=== PATIENT | female | born 1965 | race Caucasian/White ===

== ENCOUNTER 2023-07-21 15:28 | Outpatient (CLI) | payer OTHER, SELFPAY ==
--- NOTE | 2023-07-21 15:30 | CRLHL7_ITS ---
For Patients: As a result of the Century Cures Act, medical imaging exams and procedure reports are released immediately into your electronic medical record. You may view this report before your referring provider. If you have questions, please contact your health care provider. HISTORY: Right knee pain. TECHNIQUE: Noncontrast MRI of the right knee. COMPARISON: Radiographs 06/22/2023. FINDINGS: Medial compartment: Medial meniscus: Complex tearing of the posterior horn medial meniscus. There is a approximately 11 x 9 mm meniscal flap extending anteriorly from the posterior horn of the meniscus closer to the root. The flap is noted on coronal STIR image #20 of series 5 for example. The more anterior aspect of the medial meniscus is intact. Articular cartilage: Mild thinning of the articular cartilage of the medial joint space compartment (grade 1/2). - Lateral compartment: Lateral meniscus: Slightly frayed free edge of the lateral meniscal body. Articular cartilage: Maintained. - Patellofemoral compartment: There is subchondral bone marrow edema involving the lateral patellar facet more inferiorly which relates to overlying limited grade 4 chondromalacia. There is high-grade chondromalacia within the central medial trochlea, also likely up to grade 4 given the presence of subchondral bone marrow edema. - Ligaments: The anterior and posterior cruciate ligaments are intact. Medial collateral ligament is intact. The lateral collateral complex intact. - Extensor mechanism: The distal quadriceps tendon and patellar tendon are intact. Medial and lateral patellar restraints are intact. No patellar subluxation or denice. - Joint space: Small amount of joint fluid. No intra-articular joint body. Medial patellar plica. - Bones and soft tissues: Bone marrow edema involving the medial tibial plateau likely relates to mild stress change. There is no fracture. A popliteal cyst is present measuring approximately 3 x 2 x 5.3 cm in size with findings of leakage inferiorly. IMPRESSION: 1. Complex medial meniscal tear with a displaced meniscal flap. 2. Mild bone marrow edema involving the medial tibial plateau likely reflecting mild stress change. No fracture. 3. Patellofemoral greater than medial compartment articular cartilage wear. 4. Small knee joint effusion. 5. Popliteal cyst with findings of leakage. Dictated by Aleksandar Contreras MD @ 07/24/2023 11:56:30 AM (Electronically Signed)
== END 2023-07-21 15:29 | disposition home or self-care (01) ==
LOC: MRI 15:33
PROVIDERS: PCP Orthopaedic Surgery; Visit Provider Orthopaedic Surgery
DX: M25.561 Pain in right knee (principal); S83.231A Complex tear of medial meniscus, current injury, right knee, initial encounter; M25.461 Effusion, right knee; M71.21 Synovial cyst of popliteal space [Baker], right knee
CPT/HCPCS: 73721

== ENCOUNTER 2023-08-11 08:54 | Day surgery (SDC) | payer OTHER, SELFPAY ==
[2023-08-11] VITALS (12 sets, daily range): BP systolic 97–120; BP diastolic 64–80; PULSE 58–79; RESP 14–18; TEMP 35.9–36.6; O2SAT 95–100; BMI 25.0
--- NOTE | 2023-08-11 09:27 | W.PM.H&PU ---
History & Physical Update History & Physical Update H&P Reviewed and patient assessed: No changes noted
--- NOTE | 2023-08-11 09:28 | P.ORPRC_ITS ---
Procedure Note Date of procedure: 08/11/23 Procedure: PREOPERATIVE DIAGNOSIS: 1. Right knee medial meniscus tear and chondromalacia POSTOPERATIVE DIAGNOSIS: 1. 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 Right knee arthroscopic partial medial and lateral meniscectomies. 2. Right knee arthroscopic chondroplasty medial femoral condyle and trochlea. SURGEON: Gilmer Pitt M.D. SIGN HANGER: Carlos Manuel [employer] - An kindergarten instructional assistant was critical for this case to aid in patient positioning, knee manipulation, instrument exchange, and closure. ANESTHESIA: Spinal EBL: 5 mL TOURNIQUET: Not applicable COMPLICATIONS: None evident INDICATIONS: Eufemia is a pleasant 57-year-old female with several month history of medial-sided right knee pain that did not improve with conservative management. MRI was significant for complex tear of the posterior horn of the medial meniscus. Due to persistent symptoms. Patient was offered arthroscopic partial medial meniscectomy to help improve symptoms. Prior to surgery risks and benefits were discussed with patient all questions were answered and informed consent was obtained. FINDINGS: Examination received a full range of motion. Knee was stable to varus valgus stress. Bob's and posterior drawer tests were negative. Arthroscopic examination revealed complex degenerative tear involving the posterior horn of the medial meniscus. There was some fraying of the posterior horn and body of the lateral meniscus. Meniscal root attachments were intact. ACL PCL were intact. Diffuse grade 3 chondromalacia of the medial femoral condyle with grade 1 chondromalacia of the medial tibial plateau. Grade 2 and grade 3 chondral changes of the lateral tibial plateau. Diffuse grade 3 chondral changes of the patella. Small grade 4 chondral malacia of the trochlea which measured 3 mm x 5 mm. DESCRIPTION OF PROCEDURE: Patient seen preoperatively and operative site was marked. She was then brought to the operating room where spinal anesthesia was administered. She was then rotated into the supine position on the OR table and the operative leg was placed into the leg kiran. 1 g of IV Ancef was administered preoperatively for prophylaxis. The right lower extremity was pr epped and draped in the appropriate sterile fashion. A surgical time-out was performed confirming patient identity, surgical site, and procedure. Anteromedial anterolateral portal sites were injected with 0.25% Marcaine with epinephrine. Anterolateral portal was established with an 11 blade, and an anterior medial portal established after localization with spinal needle. Diagnostic arthroscop y was performed with findings as noted above. Attention was 1st directed to the lateral compartment. There was some degenerative fraying of the inner edge of the posterior horn and body of the medial meniscus. Degenerative portions of the meniscus were debrided using motorized shaver. After resection of the degenerative areas, probe was introduced and remnant meniscus was confirmed to be stable. Greater than 90% of the lateral meniscus remained after partial meniscectomy. Next attention was directed to the medial compartment. There is a complex degenerative tear with an unstable meniscal flap involving the posterior horn and extending into the junction of the posterior horn and body of the medial meniscus. Partial medial meniscectomy was then performed using combination of arthroscopic biters and motorized Steve. A small flap near the posterior horn could not be resected with these instruments of electrocautery was used to debride the small flap. After completion of the partial meniscectomy, appropriately reduced and meniscus was confirmed to be stable. Meniscal root attachments were intact. Following partial meniscectomy approximately 50% the posterior horn of the medial meniscus remained intact. On the medial femoral condyle there was diffuse grade 3 chondral changes. Loose cartilage was debrided using the motorized shaver. After chondroplasty, remnant cartilage was probed and confirmed to stable. Attention was then directed to the patellofemoral joint. Diffuse grade 3 chondral changes were noted involving the inferior aspect of the patella. There was a small area of grade 4 chondromalacia measuring 3 mm x 5 mm of the central trochlea. Loose cartilage around the trochlear lesion was debrided with the motorized shaver. After debridement remnant cartilage was probed and confirmed to be stable. The shaver was then reinserted into the suprapatellar pouch and all remaining meniscal debris was evacuated. Instruments were removed, excess fluid was drained, and closure performed with 4-0 Monocryl with Steri-Strips. D sterile dressings were applied, and the patient was awoken from anesthesia and transferred to the PACU in stable condition. PLAN: 1. Weightbear as tolerated right lower extremity. Crutch / walker ambulation assistance PRN. 2. Ice, elevation, acetominophen and/or ibuprofen, and [place] for pain as needed. 3. Knee range of motion and quad sets/straight leg raise regularly 4. Follow up in orthopedic clinic in 1-2 weeks for a wound check.
[2023-08-11] MEDS: LACTATED RINGERS 1000 ML 1,000 ML 100 ML IV ×2 (09:35→10:14)
[2023-08-11] MEDS: SODIUM CHLORIDE 0.9 % (FLUSH) 10 ML SYRINGE IVF (09:37)
--- NOTE | 2023-08-11 09:42 | W.ANESCHARGE ---
Anesthesia Charges Start Date/Time Anesthesia Start Date: 08/11/23 Anesthesia Start Time: 09:56 Stop Date/Time Anesthesia Stop Date: 08/11/23 Anesthesia Stop Time: 11:24
[2023-08-11] MEDS: CEFAZOLIN 2 GM INJ IVP (10:10)
--- NOTE | 2023-08-11 10:14 | W.ANESCHARGE ---
Anesthesia Charges Start Date/Time Anesthesia Start Date: 08/11/23 Anesthesia Start Time: 09:56 Stop Date/Time Anesthesia Stop Date: 08/11/23 Anesthesia Stop Time: 11:24
[2023-08-11] MEDS: BUPIVACAINE 0.25 %/EPI 1:200K 30 ml 4 ML INJECTION (10:20)
[2023-08-11] MEDS: HYDROCODONE-ACETAMIN 5-325 MG 1 TAB PO (12:28)
== END 2023-08-11 12:59 | disposition home or self-care (01) ==
PROVIDERS: PCP Family Medicine; Visit Provider Orthopaedic Surgery
PROC: (CPT 29870; principal; 2023-08-11 10:30)
DX: M23.221 Derangement of posterior horn of medial meniscus due to old tear or injury, right knee (principal); M23.251 Derangement of posterior horn of lateral meniscus due to old tear or injury, right knee; M94.261 Chondromalacia, right knee
CPT/HCPCS: 29880; 01400; A9270; J0690; J1100; J2250; J2405; J2704; J3010; J7120